=== PATIENT | male | born 1980 | race Caucasian/White ===

== ENCOUNTER 2017-02-12 23:51 | Emergency (ER) | payer BC ==
[~2017-02-12] VITALS: Ht 193 cm; Wt 70.5 kg
[~2017-02-12 23:51] MED LIST: ASPIRIN E.C. 8181 MG PO; FOLIC ACID 11 MG/TA1 PO; LOPRESSOR 225 MG/TAB PO; PACERONE400 MG PO; SEROQUEL 2525 MG/TAB PO; XARELTO20 MG PO
[2017-02-13 00:04] VITALS: TEMP 97.7
[2017-02-13] MEDS ORDERED: PRINIVIL10 MG PO (00:40)
[2017-02-13 02:12] VITALS: BP 114/85; PULSE 75
== END 2017-02-13 02:14 | disposition home or self-care (01) ==
LOC: COL.ER 23:51
DX: R04.0 Epistaxis (principal); I10 Essential (primary) hypertension; Z79.82 Long term (current) use of aspirin